=== PATIENT | female | born 1995 | race American Indian/Alaskan Native ===

== ENCOUNTER 2020-10-19 10:13 | Emergency (ER) | payer MEDICAID ==
--- NOTE | 2020-10-19 10:51 | Emergency Department Report ---
ED Abdominal Pain HPI - General Chief Complaint: Abdominal Pain Stated Complaint: ABD PAIN NAUSEA Time Seen by Provider: 10/19/20 10:28 Source: patient Mode of arrival: Ambulatory Limitations: No Limitations - History of Present Illness Initial Comments: 25-year-old female presents to ED with abdominal pain x4 days. She reports associated nausea and metallic taste in her mouth. Patient is unsure if she is . States last menstrual period was October 08. Patient reports miscarriage 5 months ago. States ever since then she has been having inte rmittent sensation of something falling out of her vagina. She denies any vaginal discharge. MD Complaint: abdominal pain -: days(s) (4) Location: suprapubic Radiation: none Migration to: no migration Severity: mild Severity scale (0 -10): 9 Quality: cramping Consistency: intermittent Improves With: nothing Worsens With: nothing Associated Symptoms: nausea. denies: vomiting - Related Data Previous Rx's Medication Instructions Recorded Last Taken Type Naproxen [Naprosyn] 500 mg PO BID #20 tablet 10/19/20 Unknown Rx Ondansetron [Zofran Odt] 4 mg PO Q8HR PRN #20 tab.rapdis 10/19/20 Unknown Rx Allergies Allergy/AdvReac Type Severity Reaction Status Date / Time No Known Allergies Allergy Unverified 10/19/20 10:21 ED Review of Systems ROS: Stated complaint: ABD PAIN NAUSEA Other details as noted in HPI Comment: All other systems reviewed and negative Constitutional: denies: fever Gastrointestinal: abdominal pain, nausea. denies: vomiting Genitourinary: denies: dysuria, discharge ED Past Medical Hx - Past Medical History Previous Medical History?: No - Surgical History Past Surgical History?: Yes Additional Surgical History: OVARIAN CYST REMOVED X 2 - Medications Home Medications: Home Medications Medication Instructions Recorded Confirmed Last Taken Type Naproxen [Naprosyn] 500 mg PO BID #20 tablet 10/19/20 Unknown Rx Ondansetron [Zofran Odt] 4 mg PO Q8HR PRN #20 tab.rapdis 10/19/20 Unknown Rx ED Physical Exam - General Limitations: No Limitations General appearance: alert, in no apparent distress - Head Head exam: Present: atraumatic, normocephalic - Eye Eye exam: Present: normal appearance, EOMI - ENT ENT exam: Present: mucous membranes moist - Neck Neck exam: Present: normal inspection - Respiratory Respiratory exam: Present: normal lung sounds bilaterally. Absent: respiratory distress - Cardiovascular Cardiovascular Exam: Present: regular rate, normal rhythm - GI/Abdominal GI/Abdominal exam: Present: soft, tenderness (Mild suprapubic). Absent: distended - Speculum exam: Present: other (Patient refused pelvic exam) - Extremities Exam Extremities exam: Present: normal inspection - Neurological Exam Neurological exam: Present: alert, oriented X3 - Psychiatric Psychiatric exam: Present: normal affect, normal mood - Skin Skin exam: Present: warm, dry, intact, normal color ED Course Vital Signs 10/19/20 10/19/20 10/19/20 10:21 10:34 10:56 Temperature 98.3 F 98 F Pulse Rate 91 H 82 82 Respiratory 18 20 15 Rate Blood Pressure 131/88 Blood Pressure 133/90 111/75 [Right] O2 Sat by Pulse 100 100 99 Oximetry 10/19/20 14:23 Temperature Pulse Rate 73 Respiratory 16 Rate Blood Pressure Blood Pressure 113/75 [Right] O2 Sat by Pulse 100 Oximetry ED Medical Decision Making - Lab Data Result diagrams: 10/19/20 10:33 10/19/20 12:18 - Medical Decision Making 25-year-old female presents to ED with abdominal pain x4 days. She reports associated nausea and metallic taste in her mouth. Patient is unsure if she is . States last menstrual period was October 08. Patient reports miscarriage 5 months ago. States ever since then she has been having intermittent sensation of something falling out of her vagina. She denies any vaginal discharge. Today, test is negative, urine is unremarkable. Patient refuses pelvic exam at this time. Abdomen is soft, nontender. Vital signs are stable. She will be discharged at this time. Patient advised to follow-up with bell clerk. Return precautions given. - Differential Diagnosis IUP, ectopic , UTI, prolapse Critical care attestation.: If time is entered above; I have spent that time in minutes in the direct care of this critically ill patient, excluding procedure time. ED Disposition Clinical Impression: Abdominal pain Disposition: DC-01 TO HOME OR SELFCARE Is pt being admited?: No Condition: Stable Instructions: Abdominal Pain, Adult, [id number], Abdominal Pain (ED) Prescriptions: Naproxen [Naprosyn] 500 mg PO BID #20 tablet Ondansetron [Zofran Odt] 4 mg PO Q8HR PRN #20 tab.rapdis PRN Reason: Vomiting Referrals: PRIMARY CARE, [Primary Care Provider] - 3-5 Days OLIVIA NICKERSON MD [Staff Physician] - 3-5 Days [facility] [Outside] - 3-5 Days [facility] [Provider Group] - 3-5 Days Time of Disposition: 13:36
[2020-10-19 11:09] LABS: Bilirubin,Urine NEG (Negative); Blood,Urine NEG (Negative); Color,Urine Yellow (Yellow); Mucus,Urine FEW /HPF; Protein,Urine <15 mg/dL mg/dL (Negative); Urobilinogen,Urine < 2.0 mg/dL (<2.0); WBC,Urine < 1.0 /HPF (0.0-6.0)
[2020-10-19 11:13] LABS: HCG Qualitative,Urine Negative (Negative)
[2020-10-19 11:15] LABS: Eosinophils # (Auto) 0.1 K/mm3 (0.0-0.4); Eosinophils % (Auto) 1.2 % (0.0-4.3); Monocytes # (Auto) 0.3 K/mm3 (0.0-0.8); Monocytes % (Auto) 4.8 % (0.0-7.3)
[2020-10-19 11:42] LABS: Hematocrit 37.8 % (30.3-42.9); Hemoglobin 12.5 gm/dl (10.1-14.3); Mean Corpuscular HGB Conc 33 % (30-34); Mean Corpuscular Volume 78 fl (79-97); Platelet Count 261 K/mm3 (140-440); Red Blood Count 4.86 M/mm3 (3.65-5.03); Red Cell Distribution Width 15.7 % (13.2-15.2)
[2020-10-19 11:43] LABS: Basophils % (Auto) 0.8 % (0.0-1.8); Lymphocytes % (Auto) 37.4 % (13.4-35.0)
[2020-10-19 11:59] LABS: BUN/Creatinine Ratio TNR; Blood Urea Nitrogen TNR mg/dL (7-17)
[2020-10-19 12:00] LABS: Alanine Aminotransferase TNR units/L (7-56); Albumin TNR g/dL (3.9-5); Calcium TNR mg/dL (8.4-10.2); Hemolysis Index TNR
[2020-10-19 13:07] LABS: Alanine Aminotransferase 11 units/L (7-56); Albumin 4.1 g/dL (3.9-5); Blood Urea Nitrogen 8 mg/dL (7-17); Calcium 9.3 mg/dL (8.4-10.2); Hemolysis Index 5
[2020-10-19 13:23] LABS: BUN/Creatinine Ratio 13
[2020-10-19 14:42] VITALS: BP 113/75
== END 2020-10-19 14:41 | disposition home or self-care (01) ==
LOC: ED 10:13
DX: R10.2 Pelvic and perineal pain (principal); R11.0 Nausea; Z98.890 Other specified postprocedural states; Z79.899 Other long term (current) drug therapy
CPT/HCPCS: 36415; 80053; 81001; 81025; 85025